=== PATIENT | female | born 1950 | race Caucasian/White ===

== ENCOUNTER 2025-03-17 18:32 | Emergency (ER) | payer MEDICARE, BC ==
[~2025-03-17] VITALS: Ht 165.1 cm; Wt 63.5 kg
[2025-03-17 19:17] LABS: PLATELET COUNT (AUTO) 271 K/uL (179-408); RED BLOOD CELL COUNT(AUTO) 3.75 MIL/uL (3.63-4.92); RED CELL DISTRIBUTION WIDTH 13.7 % (12.3-17.7); WHITE BLOOD COUNT (AUTO) 7.6 K/uL (3.8-11.8)
[2025-03-17] MEDS: IV NORMAL SALINE 500 ML BAG IV ONE (19:19)
[2025-03-17 19:41] LABS: SODIUM SERUM 143 mmol/L (136-145)
[2025-03-17 19:42] LABS: ASPARTATE AMINOTRANSFERASE 13 U/L (15-37); CREATININE 1.0 mg/dL (0.6-1.3); TOTAL PROTEIN, SERUM 6.6 g/dL (6.4-8.2); UREA NITROGEN, BLOOD 30 mg/dL (7-18)
[2025-03-17] MEDS: POTASSIUM CHLORIDE 20 MEQ TAB.PRT.SR PO ONE (20:13)
[2025-03-17 20:40] LABS: *BILIRUBIN,URIN NEGATIVE (NEGATIVE); *BLOOD, URINE NEGATIVE (NEGATIVE); *CLARITY,URINE CLEAR (CLEAR); *COLOR,URINE YELLOW (YELLOW); *KETONES,URINE NEGATIVE (NEGATIVE); *PROTEIN,URINE NEGATIVE (NEGATIVE); *UROBILINOGEN,URINE 0.2 E.U./dl (NORMAL); NITRITE, URINE NEGATIVE (NEGATIVE); UGLUCOSE NEGATIVE (NEGATIVE)
[2025-03-17 20:43] LABS: LEUKOCYTE ESTERASE ,URINE NEGATIVE (NEGATIVE)
[2025-03-17 21:09] VITALS: BP 118/60
[2025-03-17 21:11] VITALS: BP 118/60; O2SAT 97
== END 2025-03-17 21:11 | disposition home or self-care (01) ==
LOC: ER 18:36
DX: I95.1 Orthostatic hypotension (principal); E86.0 Dehydration; E78.5 Hyperlipidemia, unspecified; E87.6 Hypokalemia; F03.90 Unspecified dementia, unspecified severity, without behavioral disturbance, psychotic disturbance, mood disturbance, and anxiety; I11.9 Hypertensive heart disease without heart failure; I34.1 Nonrheumatic mitral (valve) prolapse
CPT/HCPCS: 99285; 70450; 71045; 80076; 80048; 81003; 83880; 85025; 85730; 84484; 36415; 93005; J7040; A4606; A4663